=== PATIENT | female | born 1965 | race Caucasian/White ===

== ENCOUNTER 2020-01-04 04:25 | Inpatient (IN) ==
[2020-01-04] MEDS ORDERED: hydrALAZINE 20 MG/1 ML VIAL ONE (04:37)
[2020-01-04] MEDS ORDERED: NITROGLYCERIN 2% OINT 1 INCH/GM PACK TOP ONE (04:37)
[2020-01-04] MEDS ORDERED: FUROSEMIDE 100 MG/10 ML VIAL ONE (04:38)
[2020-01-04] MEDS ORDERED: dilTIAZem Drip 125 MG/125 ML PREMIX IV ONE (04:38)
[2020-01-04] MEDS ORDERED: DILTIAZEM 25 MG/5 ML VIAL IV ONE (04:38)
[2020-01-04] MEDS ORDERED: methylPREDNISolone SOD SUC 125 MG/2 ML VIAL IV STA ×2 (04:39→04:56)
[2020-01-04] MEDS ORDERED: ONDANSETRON 4 MG/2 ML VIAL IV STA ×2 (04:39→04:56)
[2020-01-04] MEDS ORDERED: methylPREDNISolone SOD SUC 125 MG/2 ML VIAL ONE (04:39)
[2020-01-04] MEDS ORDERED: ASPIRIN 325 MG TABLET PO STA ×2 (04:39→04:56)
[2020-01-04] MEDS ORDERED: MORPHINE 4 MG/1 ML VIAL IV STA ×2 (04:39→04:56)
[2020-01-04] MEDS ORDERED: FUROSEMIDE 100 MG/10 ML VIAL IV STA ×2 (04:39→04:56)
[2020-01-04] MEDS ORDERED: ALBUTEROL/IPRATROPIUM 3 ML NEB RESP TX STA ×2 (04:39→04:56)
[2020-01-04] MEDS: dilTIAZem Drip 125 MG/125 ML PREMIX IV SCH (04:41)
[2020-01-04] MEDS ORDERED: DILTIAZEM 50 MG/10 ML VIAL IV STA (04:56)
[2020-01-04] MEDS ORDERED: NITROGLYCERIN DRIP 50 MG/250 ML BOTTLE IV SCH ×2 (05:00)
[2020-01-04 05:13] LABS: Immature Granulocytes % 0.9 %; Red Cell Distribution Width 17.6 % (9.3-17.3)
[2020-01-04 05:16] LABS: ABG Base Excess -5.2 MMOL/L (-2.5-2.5); ABG HCO3 20.1 MMOL/L (20-26); ABG Oxygen Saturation 98.6 % (95-100); ABG PCO2 46.3 MM HG (35-48); ABG PH 7.277 (7.35-7.45); ABG TCO2 19.7 MMOL/L (23-27); Allen Test Positive
[2020-01-04 05:19] LABS: PT Patient Result 10.7 SECS (9.8-11.9)
[2020-01-04] MEDS ORDERED: NITROGLYCERIN 2% OINT 1 INCH/GM PACK TOP STA (05:22)
[2020-01-04 05:24] LABS: Albumin 3.7 G/DL (3.4-5.0); Bilirubin,Total 0.4 MG/DL (0.2-1.0); Calcium 9.1 MG/DL (8.5-10.1); Osmolality,Calculated 292.5 MOS/KG (273-304); Total Protein 7.9 G/DL (6.4-8.3)
[2020-01-04 05:31] LABS: Basophils # 0.1 10*3/uL (0.0-0.2); Basophils % 0.4 % (0.0-0.8); Eosinophils # 0.6 10*3/uL (0.0-0.87); Eosinophils % 1.8 % (0.00-10.9); Hematocrit 37.8 VOL% (35.7-47.0); Immature Granulocytes Absolute 0.29 #; Lymphocytes # 5.1 10*3/uL (1.4-4.0); Lymphocytes % 15.4 % (21.3-54.2); Mean Corpuscular HGB Conc 29.4 GM/DL (32-36); Mean Corpuscular Volume 82.4 FL (87-102); Mean Platelet Volume 11.6 FL (9.6-12.0); Monocytes % 4.3 % (1.7-12.7); Neutrophils % 77.2 % (38.7-73.9); Platelet Count 476 T/CUMM (130-400); Red Blood Count 4.59 MC/CUMM (3.8-5.5)
[2020-01-04 05:32] LABS: Hemoglobin 11.1 GM/DL (12.0-16.0)
[2020-01-04] MEDS ORDERED: PIPERACILLIN/TAZOBACTAM 3,375 MG in SODIUM CHLORIDE 0.9% 100 ML IV STA (05:33)
[2020-01-04] MEDS ORDERED: AZITHROMYCIN INJ 500 MG in SODIUM CHLORIDE 0.9% 250 ML IV STA (05:33)
[2020-01-04] MEDS ORDERED: ENOXAPARIN 100 MG/ML SYRINGE SUBCUT STA (05:36)
[2020-01-04 05:49] LABS: Apearance,Urine CLEAR (Clear); Bacteria,Urine Occasional /HPF (Few); Bilirubin,Urine Negative (Negative); Blood, Urine Negative (Negative); Glucose,Urine (UA) 150 mg/dL (Negative); Hyaline Casts,Urine 1 /LPF (0-3); Ketones,Urine Negative (Negative); Nitrite,Urine Negative (Negative); Protein,Urine 100 MG/DL; RBC,Urine <1 /HPF (0-4); Squamous Epithelial Cell,Urine Occasional /HPF (0-10); Urine Color Straw (Yellow); Urine Specific Gravity 1.015 (1.001-1.035); Urine Urobilinogen < 2.0 EU/DL (0.2-1.0); WBC,Urine <1 /HPF (0-6)
[2020-01-04 05:53] LABS: Barbiturates Screen,Urine Negative (Negative); Benzodiazepines Screen,Urine Negative (Negative); Cannabinoid Screen,Urine Negative (Negative); Opiate Screen,Urine Negative (Negative); Phencyclidine Screen,Urine Negative (Negative)
[2020-01-04] MEDS ORDERED: guaiFENesin/DM ER 600-30 MG TABLET PO PRN (06:21)
[2020-01-04] MEDS ORDERED: DEXTROSE 50% 25 GM/50 ML VIAL IV PRN (06:21)
[2020-01-04] MEDS ORDERED: GLUCAGON 1 MG VIAL IM PRN (06:21)
[2020-01-04] MEDS ORDERED: hydrALAZINE 20 MG/1 ML VIAL IV PRN (06:21)
[2020-01-04] MEDS ORDERED: MORPHINE 4 MG/1 ML VIAL IV PRN (06:21)
[2020-01-04] MEDS ORDERED: ONDANSETRON 4 MG/2 ML VIAL IV PRN (06:21)
[2020-01-04] MEDS ORDERED: ALUMINUM/MAGNES/SIMETH MAX STR 30 ML UDCUP PO PRN (06:21)
[2020-01-04 06:29] LABS: Acanthocytes Few; Band Neutrophils 1 % (0-10); Lymphocytes 17 % (20-55); Platelet Estimate Increased; Polychromasia 1+; Segmented Neutrophils 79 % (50-85); Total Cells Counted 100
[2020-01-04 06:30] LABS: Anisocytosis 1+; Macrocytosis 1+
[2020-01-04 06:43] LABS: Ferritin 17.2 ng/ml (8-252)
[2020-01-04 07:15] LABS: Risk Ratio 2.52; Thyroid Stimulating Hormone 4.98 uIU/ml (0.358-3.74)
[2020-01-04] MEDS: VANCOMYCIN INJ 1,500 MG in SODIUM CHLORIDE 0.9% 500 ML IV SCH ×2 (10:48→19:49)
[2020-01-04] MEDS: INSULIN REGULAR 100 UNIT/ML SUBCUT SCH ×2 (12:44→17:00)
[2020-01-04] MEDS ORDERED: METOPROLOL SUCCINATE XL 25 MG TABLET PO ONE (14:28)
[2020-01-04] MEDS: PIPERACILLIN/TAZOBACTAM 3,375 MG in SODIUM CHLORIDE 0.9% 100 ML IV SCH ×2 (15:09→22:23)
[2020-01-04] MEDS: FUROSEMIDE 40 MG/4 ML VIAL IV SCH (15:09)
[2020-01-04] MEDS ORDERED: ENOXAPARIN 100 MG/ML SYRINGE SUBCUT ONE (16:53)
[2020-01-04 17:00] LABS: Calcium 8.9 MG/DL (8.5-10.1); Osmolality,Calculated 290.4 MOS/KG (273-304)
[2020-01-04] MEDS: ENOXAPARIN 100 MG/ML SYRINGE SUBCUT SCH (17:00)
[2020-01-04] MEDS ORDERED: MAGNESIUM SULF RIDER 4 GM in PREMIX 1 EACH IV PRN (17:10)
[2020-01-04] MEDS ORDERED: MAGNESIUM SULF RIDER 2 GM in PREMIX 1 EACH IV PRN (17:10)
[2020-01-04] MEDS: POTASSIUM CHLORIDE 20 MEQ TABLET PO PRN ×2 (17:31→22:30)
[2020-01-04] MEDS: METOPROLOL SUCCINATE XL 25 MG TABLET PO SCH (20:10)
[2020-01-04] MEDS: ATORVASTATIN 10 MG TABLET PO SCH (20:10)
[2020-01-04] MEDS: diphenhydrAMINE CAP 25 MG CAPSULE PO PRN (22:27)
[2020-01-05] MEDS: INSULIN REGULAR 100 UNIT/ML SUBCUT SCH ×4 (00:21→17:11)
[2020-01-05] MEDS: ENOXAPARIN 100 MG/ML SYRINGE SUBCUT SCH ×2 (06:11→17:14)
[2020-01-05 06:23] LABS: Basophils # 0.1 10*3/uL (0.0-0.2); Basophils % 0.3 % (0.0-0.8); Eosinophils # 0.1 10*3/uL (0.0-0.87); Eosinophils % 0.6 % (0.00-10.9); Hematocrit 32.9 VOL% (35.7-47.0); Hemoglobin 9.8 GM/DL (12.0-16.0); Immature Granulocytes % 0.7 %; Immature Granulocytes Absolute 0.16 #; Lymphocytes # 3.1 10*3/uL (1.4-4.0); Lymphocytes % 13.4 % (21.3-54.2); Mean Corpuscular HGB Conc 29.8 GM/DL (32-36); Mean Corpuscular Volume 81.6 FL (87-102); Mean Platelet Volume 10.8 FL (9.6-12.0); Monocytes % 6.6 % (1.7-12.7); Neutrophils % 78.4 % (38.7-73.9); Platelet Count 420 T/CUMM (130-400); Red Blood Count 4.03 MC/CUMM (3.8-5.5); Red Cell Distribution Width 17.2 % (9.3-17.3); White Blood Count 23.4 T/CUMM (4-12)
[2020-01-05] MEDS: PIPERACILLIN/TAZOBACTAM 3,375 MG in SODIUM CHLORIDE 0.9% 100 ML IV SCH ×3 (06:35→22:31)
[2020-01-05 06:39] LABS: Albumin 3.2 G/DL (3.4-5.0); Bilirubin,Total 1.6 MG/DL (0.2-1.0); Calcium 8.9 MG/DL (8.5-10.1); Osmolality,Calculated 288.3 MOS/KG (273-304)
[2020-01-05 06:50] LABS: Elliptocytes 1+
[2020-01-05 06:51] LABS: Hypochromasia 2+; Platelet Estimate Increased
[2020-01-05] MEDS: dilTIAZem Drip 125 MG/125 ML PREMIX IV SCH (07:06)
[2020-01-05] MEDS: FUROSEMIDE 40 MG/4 ML VIAL IV SCH ×2 (08:21→15:20)
[2020-01-05] MEDS: POTASSIUM CHLORIDE 20 MEQ TABLET PO PRN ×2 (08:22→11:10)
[2020-01-05] MEDS: AZITHROMYCIN 250 MG TABLET PO SCH (08:22)
[2020-01-05] MEDS: METOPROLOL SUCCINATE XL 25 MG TABLET PO SCH ×2 (08:23→20:34)
[2020-01-05] MEDS: ASPIRIN EC 81 MG TABLET PO SCH (08:23)
[2020-01-05] MEDS ORDERED: METOPROLOL SUCCINATE XL 25 MG TABLET PO SCH (10:00)
[2020-01-05] MEDS: VANCOMYCIN INJ 1,500 MG in SODIUM CHLORIDE 0.9% 500 ML IV SCH ×2 (10:04→22:31)
[2020-01-05] MEDS: NICOTINE 21 MG/24 HR PATCH TRANSDERM PRN (10:41)
[2020-01-05] MEDS: ATORVASTATIN 10 MG TABLET PO SCH (20:34)
[2020-01-06] MEDS: INSULIN REGULAR 100 UNIT/ML SUBCUT SCH ×4 (00:15→18:04)
[2020-01-06] MEDS: dilTIAZem Drip 125 MG/125 ML PREMIX IV SCH (04:22)
[2020-01-06] MEDS: ENOXAPARIN 100 MG/ML SYRINGE SUBCUT SCH ×2 (05:36→18:04)
[2020-01-06] MEDS: PIPERACILLIN/TAZOBACTAM 3,375 MG in SODIUM CHLORIDE 0.9% 100 ML IV SCH ×3 (05:37→22:39)
[2020-01-06 08:14] LABS: Basophils # 0.1 10*3/uL (0.0-0.2); Basophils % 0.3 % (0.0-0.8); Eosinophils # 0.3 10*3/uL (0.0-0.87); Eosinophils % 1.7 % (0.00-10.9); Hematocrit 37.4 VOL% (35.7-47.0); Hemoglobin 11.3 GM/DL (12.0-16.0); Immature Granulocytes % 0.5 %; Immature Granulocytes Absolute 0.07 #; Lymphocytes # 3.4 10*3/uL (1.4-4.0); Mean Corpuscular HGB Conc 30.2 GM/DL (32-36); Mean Corpuscular Volume 80.8 FL (87-102); Mean Platelet Volume 10.4 FL (9.6-12.0); NRBC # 0.02 10*3/uL; Neutrophils % 66.5 % (38.7-73.9); Platelet Count 409 T/CUMM (130-400); Red Blood Count 4.63 MC/CUMM (3.8-5.5); Red Cell Distribution Width 17.4 % (9.3-17.3); White Blood Count 14.8 T/CUMM (4-12)
[2020-01-06 08:36] LABS: Calcium 8.9 MG/DL (8.5-10.1); Osmolality,Calculated 285.5 MOS/KG (273-304)
[2020-01-06] MEDS: METOPROLOL SUCCINATE XL 25 MG TABLET PO SCH ×2 (08:38→20:45)
[2020-01-06] MEDS: FUROSEMIDE 40 MG/4 ML VIAL IV SCH ×2 (09:39→16:14)
[2020-01-06] MEDS: POTASSIUM CHLORIDE 20 MEQ TABLET PO SCH (09:40)
[2020-01-06] MEDS: ASPIRIN EC 81 MG TABLET PO SCH (09:40)
[2020-01-06] MEDS: AZITHROMYCIN 250 MG TABLET PO SCH (09:40)
[2020-01-06] MEDS: VANCOMYCIN INJ 1,500 MG in SODIUM CHLORIDE 0.9% 500 ML IV SCH (11:44)
[2020-01-06] MEDS: ATORVASTATIN 10 MG TABLET PO SCH (20:45)
[2020-01-06] MEDS: ACETAMINOPHEN 325 MG TABLET PO PRN (20:45)
[2020-01-07] MEDS: INSULIN REGULAR 100 UNIT/ML SUBCUT SCH ×4 (00:51→17:40)
[2020-01-07 04:35] LABS: Basophils # 0.1 10*3/uL (0.0-0.2); Basophils % 0.4 % (0.0-0.8); Eosinophils # 0.3 10*3/uL (0.0-0.87); Eosinophils % 2.2 % (0.00-10.9); Hemoglobin 11.1 GM/DL (12.0-16.0); Immature Granulocytes % 0.4 %; Immature Granulocytes Absolute 0.06 #; Lymphocytes % 22.3 % (21.3-54.2); Mean Corpuscular HGB Conc 30.8 GM/DL (32-36); Mean Corpuscular Volume 78.8 FL (87-102); Mean Platelet Volume 10.9 FL (9.6-12.0); Monocytes % 9.6 % (1.7-12.7); Neutrophils % 65.1 % (38.7-73.9); Platelet Count 398 T/CUMM (130-400); Red Blood Count 4.57 MC/CUMM (3.8-5.5); Red Cell Distribution Width 17.2 % (9.3-17.3); White Blood Count 13.3 T/CUMM (4-12)
[2020-01-07 05:00] LABS: Calcium 9.1 MG/DL (8.5-10.1); Osmolality,Calculated 288.4 MOS/KG (273-304)
[2020-01-07] MEDS: VANCOMYCIN INJ 1,500 MG in SODIUM CHLORIDE 0.9% 500 ML IV SCH (05:33)
[2020-01-07] MEDS: dilTIAZem Drip 125 MG/125 ML PREMIX IV SCH (05:33)
[2020-01-07] MEDS: ENOXAPARIN 100 MG/ML SYRINGE SUBCUT SCH ×2 (05:34→08:58)
[2020-01-07] MEDS: FUROSEMIDE 40 MG/4 ML VIAL IV SCH (08:58)
[2020-01-07] MEDS: AZITHROMYCIN 250 MG TABLET PO SCH (08:58)
[2020-01-07] MEDS: METOPROLOL SUCCINATE XL 25 MG TABLET PO SCH ×2 (08:58→20:58)
[2020-01-07] MEDS: ASPIRIN EC 81 MG TABLET PO SCH (08:58)
[2020-01-07] MEDS: POTASSIUM CHLORIDE 20 MEQ TABLET PO SCH (08:58)
[2020-01-07] MEDS: PIPERACILLIN/TAZOBACTAM 3,375 MG in SODIUM CHLORIDE 0.9% 100 ML IV SCH ×2 (08:59→17:30)
[2020-01-07] MEDS: NICOTINE 21 MG/24 HR PATCH TRANSDERM PRN (17:13)
[2020-01-07] MEDS: ATORVASTATIN 10 MG TABLET PO SCH (20:58)
[2020-01-07] MEDS: APIXABAN 5 MG TABLET PO SCH (20:58)
[2020-01-08] MEDS: INSULIN REGULAR 100 UNIT/ML SUBCUT SCH ×4 (00:45→18:06)
[2020-01-08] MEDS: ACETAMINOPHEN 325 MG TABLET PO PRN ×3 (00:45→22:27)
[2020-01-08] MEDS: PIPERACILLIN/TAZOBACTAM 3,375 MG in SODIUM CHLORIDE 0.9% 100 ML IV SCH ×3 (00:45→18:05)
[2020-01-08 06:28] LABS: Basophils # 0.1 10*3/uL (0.0-0.2); Basophils % 0.4 % (0.0-0.8); Eosinophils # 0.4 10*3/uL (0.0-0.87); Eosinophils % 3.1 % (0.00-10.9); Hematocrit 35.9 VOL% (35.7-47.0); Hemoglobin 10.8 GM/DL (12.0-16.0); Immature Granulocytes % 0.5 %; Immature Granulocytes Absolute 0.06 #; Lymphocytes # 2.5 10*3/uL (1.4-4.0); Mean Corpuscular HGB Conc 30.1 GM/DL (32-36); Mean Corpuscular Volume 81.6 FL (87-102); Monocytes % 8.2 % (1.7-12.7); Neutrophils % 67.8 % (38.7-73.9); Platelet Count 386 T/CUMM (130-400); Red Cell Distribution Width 17.2 % (9.3-17.3); White Blood Count 12.6 T/CUMM (4-12)
[2020-01-08 06:52] LABS: Calcium 9.2 MG/DL (8.5-10.1); Osmolality,Calculated 284.4 MOS/KG (273-304)
[2020-01-08] MEDS ORDERED: POTASSIUM CHLORIDE 20 MEQ TABLET PO ONE (08:00)
[2020-01-08] MEDS: ASPIRIN EC 81 MG TABLET PO SCH (09:00)
[2020-01-08] MEDS: POTASSIUM CHLORIDE 20 MEQ TABLET PO SCH ×2 (09:00→20:45)
[2020-01-08] MEDS: FUROSEMIDE 40 MG TABLET PO SCH (09:00)
[2020-01-08] MEDS: METOPROLOL SUCCINATE XL 25 MG TABLET PO SCH ×3 (09:00→20:45)
[2020-01-08] MEDS: APIXABAN 5 MG TABLET PO SCH ×2 (09:00→20:45)
[2020-01-08] MEDS: lisinopriL 2.5 MG TABLET PO SCH (09:00)
[2020-01-08] MEDS: AZITHROMYCIN 250 MG TABLET PO SCH (09:00)
[2020-01-08] MEDS: ATORVASTATIN 10 MG TABLET PO SCH (20:45)
[2020-01-08] MEDS: diphenhydrAMINE CAP 25 MG CAPSULE PO PRN (22:27)
[2020-01-09] MEDS: INSULIN REGULAR 100 UNIT/ML SUBCUT SCH ×3 (00:58→06:27)
[2020-01-09] MEDS: ACETAMINOPHEN 325 MG TABLET PO PRN (02:10)
[2020-01-09 05:58] LABS: Basophils % 0.2 % (0.0-0.8); Eosinophils # 0.4 10*3/uL (0.0-0.87); Eosinophils % 3.1 % (0.00-10.9); Hematocrit 35.7 VOL% (35.7-47.0); Hemoglobin 10.8 GM/DL (12.0-16.0); Immature Granulocytes % 0.4 %; Immature Granulocytes Absolute 0.06 #; Lymphocytes # 2.8 10*3/uL (1.4-4.0); Lymphocytes % 20.2 % (21.3-54.2); Mean Corpuscular HGB Conc 30.3 GM/DL (32-36); Mean Corpuscular Volume 79.9 FL (87-102); Mean Platelet Volume 10.7 FL (9.6-12.0); Monocytes % 8.4 % (1.7-12.7); Neutrophils % 67.7 % (38.7-73.9); Platelet Count 353 T/CUMM (130-400); Red Blood Count 4.47 MC/CUMM (3.8-5.5); Red Cell Distribution Width 17.3 % (9.3-17.3)
[2020-01-09 06:20] LABS: Calcium 9.4 MG/DL (8.5-10.1); Osmolality,Calculated 288.5 MOS/KG (273-304)
[2020-01-09 09:39] VITALS: BP 107/70
[2020-01-09] MEDS: FUROSEMIDE 40 MG TABLET PO SCH (09:43)
[2020-01-09] MEDS: POTASSIUM CHLORIDE 20 MEQ TABLET PO SCH (09:43)
[2020-01-09] MEDS: lisinopriL 2.5 MG TABLET PO SCH (09:43)
[2020-01-09] MEDS: ASPIRIN EC 81 MG TABLET PO SCH (09:43)
[2020-01-09] MEDS: PIPERACILLIN/TAZOBACTAM 3,375 MG in SODIUM CHLORIDE 0.9% 100 ML IV SCH ×2 (09:43)
[2020-01-09] MEDS: METOPROLOL SUCCINATE XL 25 MG TABLET PO SCH (09:43)
[2020-01-09] MEDS: APIXABAN 5 MG TABLET PO SCH (09:43)
== END 2020-01-09 14:15 | disposition home or self-care (01) | DRG 871 ==
LOC: N.ED 04:25 → N.EDINP 06:21 → SUATTDRO 06:21 → N.CC 07:24 → N.2E 01-05 12:32
PROVIDERS: ADMIT Family Medicine; ATTEND Family Medicine